=== PATIENT | female | born 1985 | race African-American/Black ===

== ENCOUNTER 2016-12-24 19:31 | Emergency (ER) | payer MEDICAID ==
[~2016-12-24] VITALS: Ht 165.1 cm; Wt 62.6 kg
[2016-12-24 21:30] VITALS: BP 139/85
[2016-12-24] MEDS ORDERED: KETOROLAC TROMETHAMINE 30 MG/ML SYRINGE. IV ONE (21:30)
[2016-12-24] MEDS ORDERED: DIPHENHYDRAMINE 50 MG/ML VIAL IVP ONE (21:30)
[2016-12-24] MEDS ORDERED: PROCHLORPERAZINE 10 MG/2 ML VIAL. IV ONE (21:30)
--- NOTE | 2016-12-24 21:54 | PHYS DOC ---
Past Medical History Past Medical History: No Pertinent History Past Surgical History: No Surgical History Alcohol Use: Rarely Drug Use: Cocaine, Marijuana Social History Narrative: Dec 14 last use Adult General Chief Complaint Chief Complaint: HEADACHE HPI HPI Patient is a 31 year old female who presents with R>L sided headache that started gradually approximately 4 hours prior to arrival. States pain started as normal headache, and has worsened over the past few hours. She has photophobia and phonophobia. She denies vision changes, dizziness, numbness, tingling, weakness, head injury, tinnitus, chest pain, dyspnea, fever or chills , nausea or vomiting. Review of Systems Review of Systems Constitutional: Denies fever or chills [] Eyes: Denies change in visual acuity, redness, or eye pain [] HENT: Denies nasal congestion or sore throat [] Respiratory: Denies cough or shortness of breath [] Cardiovascular: No additional information not addressed in HPI [] GI: Denies abdominal pain, nausea, vomiting, bloody stools or diarrhea [] : Denies dysuria or hematuria [] Musculoskeletal: Denies back pain or joint pain [] Integument: Denies rash or skin lesions [] Neurologic: Denies focal weakness or sensory changes [] Endocrine: Denies polyuria or polydipsia [] Family History Family History Mother has history of migraines Current Medications Current Medications Current Medications Medications (Trade) Dose Ordered Sig/Clif Start Time Stop Time Status Last Admin Dose Admin Diphenhydramine HCl (Benadryl) 25 mg 1X ONCE 12/24/16 21:30 12/24/16 21:31 DC 12/24/16 21:32 25 MG Ketorolac Tromethamine (Toradol) 15 mg 1X ONCE 12/24/16 21:30 12/24/16 21:31 DC 12/24/16 21:32 15 MG Prochlorperazine Edisylate (Compazine) 10 mg 1X ONCE 12/24/16 21:30 12/24/16 21:31 DC 12/24/16 21:32 10 MG Allergies Allergies Allergies Coded Allergies Type Severity Reaction Last Updated Verified No Known Drug Allergies 12/24/16 No Physical Exam Physical Exam Constitutional: Well developed, well nourished, no acute distress, non-toxic appearance. [] HENT: Normocephalic, atraumatic, bilateral external ears normal, oropharynx moist, no oral exudates, nose normal. [] Eyes: PERRLA, EOMI. [] Neck: Normal range of motion, supple. [] Cardiovascular:Heart rate regular rhythm [] Lungs & Thorax: Bilateral breath sounds clear to auscultation [] Abdomen: Bowel sounds normal, soft, no tenderness. [] Skin: Warm, dry, no erythema, no rash. [] Back: Normal range of motion. [] Extremities: ROM intact, no edema. [] Neurologic: Alert and oriented X 3, normal motor function, normal sensory function, no focal deficits noted, cranial nerves II through XII intact. [] Psychologic: Affect normal, judgement normal, mood normal. [] Current Patient Data Vital Signs Vital Signs Date Time Temp Pulse Resp B/P Pulse Ox O2 Delivery O2 Flow Rate FiO2 12/24/16 21:30 96 20 139/85 100 Room Air 12/24/16 19:53 98.4 98.4 Course & Med Decision Making Course & Med Decision Making Headache resolved after medications. She would like to go home. Return precautions given. She understands and agrees with plan. Dragon Disclaimer Dragon Disclaimer This electronic medical record was generated, in whole or in part, using a voice recognition dictation system. Departure Departure Impression: Primary Impression: Headache Disposition: 01 HOME, SELF-CARE Condition: STABLE Referrals: NO PCP (PCP) Patient Instructions: Migraine Headache, [id number] Additional Instructions: Take Tylenol or ibuprofen as needed for pain. Follow-up with your primary care doctor. Return for any concerns. Problem Qualifiers Primary Impression: Headache Headache type: unspecified Headache chronicity pattern: episodic headache Intractability: not intractable Qualified Code: R51 - Headache Hyacinth HUFF MD Dec 24, 2016 21:54
== END 2016-12-24 22:39 | disposition home or self-care (01) ==
LOC: ER 19:31
DX: R51 Headache (principal); F12.10 Cannabis abuse, uncomplicated; F14.10 Cocaine abuse, uncomplicated
CPT/HCPCS: 96374; 96375; 99284; J0780; J1200; J1885; 81025